=== PATIENT | male | born 1970 | race Caucasian/White ===

== ENCOUNTER 2022-03-13 14:00 | Outpatient (RCR) | payer OTHER, SELFPAY ==
--- NOTE | 2022-03-13 14:36 | PT.OPDN ---
PT [place] [facility] Daily Note PT [facility] Daily Note Start: 11/28/21 15:18 Freq: Status: Active Protocol: Document 03/13/22 13:52 CJT (Rec: 03/13/22 14:36 CJT [id number]) E-signed By Chacho Amor, PT PT OP Daily Progress Note Visit Information Note Type Recert/Progress Note,No Charge Insurance Authorized Visits tbd Physician Authorized Visits eval and treat Insurance Information Recert Due Date 03/19/22 Insurance Name [facility] Medical Diagnosis M67.912 - Unspecified disorder of synovium and tendon, left shoulder, M75.02 - Adhesive capsulitis of left shoulder Treating Diagnosis M25.512 - L shoulder pain M25.612 - L shoulder stiffness Referring Justus Meneses MD Subjective Subjective Pt returns following two week absence. Has returned to the gym and working on free weights. This is going well but pt is still lacking ability to press weights overhead. All-in-all his shoulder feels about the same, progress has reached a plateau. Home Exercise Home Exercise Comments [id number] Objective Other/Pertinent Objective L shoulder AROM: 155/90/75/15 True GHJ abduction measured as 60 degrees Strength measures 5/5 MMT in all directions - pain noted with resisted IR Wahkon's: positive - L bicep lacks visible contraction [place]'s: positive Crossover: positive Mar/Eugene: positive Patient Instructed in Risks/Benefits Yes Assessment/Impression Assessment/Impression Pts progress has reached a plateau. Still having trouble finding comfortable position for L shoulder while sleeping, unable to press free weights overhead and elevation ROM continues to be limited, especially with abduction. Strict GHJ abduction measured as 60 degrees today with pain noted in lateral delt region. Tests for impingement, labrum involvement continue to be negative and pts L bicep lacks visible contraction with Wahkon's test. I informed Jb that I spoke with Dr. Hanson earlier today who encouraged me to refer Jb back to his office. Jb agrees with this plan. We will cancel his remaining visits for now and wait for results/ directions following his consultation with orthopedics. Plan of Care Physical Therapy Goals STG - To be completed in 2-3 weeks: 1. Pt will demonstrate improved shoulder flexion and abduction by 15+ degrees so that they may reach for cans of soup on top shelf in pantry . -Abduction MET, Flexion MET 2. Pt will report reduction in shoulder pain by factor of 2 so that they may sleep without waking due to pain while shifting position in the night . MET LTG - To be completed in 6-8 weeks: 1. Pt to be I with HEP so that they may I manage progression of symptoms. 2. Pt will report ability to lay on R/L shoulder in bed without increase in pain so that they may sleep in preferred position to achieve better night's sleep. 3. Pt will demo full and pain free shoulder ROM and strength B so that they may return to recreational exercise at gym. 4. Pt will perform 10 shoulder abductions with 10# dumbbell on L without increase in shoulder pain so that he may continue to perform this exercise at the gym without reaggravating his shoulder symptoms. Daily Plan of Care Change POC; See Comments Daily Plan of Care Comments Hold chart.
== END 2022-05-15 11:06 | disposition home or self-care (01) ==
PROVIDERS: Visit Provider Orthopaedic Surgery Sports Medicine
DX: M67.912 Unspecified disorder of synovium and tendon, left shoulder (principal); Z51.89 Encounter for other specified aftercare
CPT/HCPCS: 97035; 97110; 97140; 97161

== ENCOUNTER 2023-12-03 07:03 | Outpatient (CLI) | payer OTHER, SELFPAY ==
--- OUTSIDE RECORDS SUMMARY | 2023-12-03 07:08 | XMS_ITS | Clinical Summary ---
Author Organization [facility] Address [place], [place] [address] Care Team Providers Care Application Design Engineer Name Role Phone tAif Mcdonald MD Primary Care Provider Allergies No known active allergies Medications Medication Sig Dispensed Refills Start Date End Date Status tadalafiL (CIALIS) 5 mg tabletIndications:Ere ctile dysfunction, unspecified erectile dysfunction type,BPH with urinary obstruction Take 1 tab daily. Take additional 1-3 tabs as needed before sexual activity 120 Tablet 3 08/31/2023 Active atorvastatin (LIPITOR) 20 mg tabletIndications:Mix ed hyperlipidemia Take 1 Tablet (20 mg) by mouth at bedtime. 90 Tablet 3 08/31/2023 Active Active Problems Problem Noted Date Diagnosed Date Basal cell carcinoma (BCC) of skin of face 08/29 Overview: Face- 2022 Elevated lipoprotein(a) 06/24/2021 Hemorrhoids, internal 06/18/2021 Erectile dysfunction 06/18/2021 Tubular adenoma of colon 06/18/2021 Overview: Colonoscopy May 2020-repeat after 3 years Mixed hyperlipidemia 10/19/2017 Resolved Problems Problem Noted Date Diagnosed Date Resolved Date Rectal bleeding 10/19/2017 08/31/2023 Encounters Date Type Department Care Team Description 11/04/2023 Refill [facility] [address] [place], [place] [id number] Atif Mcdonald MD Refill Request (Tadalafil) from Last 3 Months Immunizations Name Administration Dates Next Due COVID-19 vaccine (Moderna 100mcg/0.5mL) PF, MDV 10/02/2020,09/04/2020 COVID-19 vaccine (Moderna Camilo marysol 50mcg/0.25mL) PF, MDV 06/07/2021 Td (Age >=7 Years) 06/02/2008 Tdap 03/24/2017,06/02/2008 Family History Medical History Relation Name Comments Good Health Father Diabetes Maternal Grandfather Coronary artery disease Mother Good Health Mother Relation Name Status Comments Father Maternal Grandfather Mother Social History Tobacco Use Types Packs/Day Years Used Date Smoking Tobacco: Never Smokeless Tobacco: Never Alcohol Use Standard Drinks/Week Comments Yes 1 (1 standard drink = 0.6 oz pur e alcohol) c ouple beers a week. PHQ-2 Answer Date Recorded PHQ-2 TOTAL SCORE 0 08/31/2023 Social Connections Answer Date Recorded Frequency of Communication with Friends and Fami ly Not on file 08/31/2023 Financial Resource Strain Answer Date R ecorded Difficulty of Paying Living Expenses 3 08/29/2022 Difficulty of Paying Living Expenses Not on file 08/29/2022 Food Insecurity Answer Date Recorded Worried About Running Out of Food in the Last Ye ar 1 08/29/2022 Transportation Needs Answer Date Record ed Lack of Transportation (Medical) 1 08/29/2022 Housing Stability Answer Date Recorded Unable to Pay for Housing in the Last Year 1 08/29/2022 Sex and Gender Information Value Date Recorded Sex Assigned at Not on file Gender Identity Not on file Sexual Orientation Not on file Obstetrics History Last Filed Vital Signs Vital Sign Reading Time Taken Comments Blood Pressure 102/58 08/31/2023 8:16 AM CDT Pulse 72 08/31/2023 8:16 AM CDT Temperature 35.9 ??C (96.7 ??F) 06/01/2019 10:[address] Respiratory Rate 16 06/08/2008 12:35 PM PSYCHOLOGIST EXPERIMENTAL Oxygen Saturation 98% 06/01/2019 10:28 AM PSYCHOLOGIST EXPERIMENTAL Inhaled Oxygen Concentration - - Weight 90.7 kg (200 lb) 08/31/2023 8:16 AM CDT Height 186.1 cm (6' 1.25) 08/31/2023 8:16 AM CD T Body Mass Index 26.21 08/31/2023 8:16 AM CDT Plan of Treatment Health Maintenance Due Date Last Done Comments HIV for age 15-65 1984 Hepatitis C screening for age 18-79 09/12/1987 Zoster (shingles) series for age 50+ (1 of 2) 09/12/2019 COVID-19 vaccine series (4 - 2022- season) 2023 06/07/2021, 10/02/2020, 09/04/2020 Influenza for age 50-64 01/17/2024 BMI (ht and wt on same day) for age 18+ 08/30/2024 08/31/2023, 08/29/2022, 06/19/2021, Additional history exists Depression screening for age 12+ 08/30/2024 08/31/2023, 06/19/2021, 06/19/2021, Additional history exists Tetanus booster 03/24/2027 03/24/2017, 05/18, 06/02/2008, Additional history exists Colonoscopy through age 75 06/10/2028 06/10/2023, Lipids for age 45-75 08/30/2028 08/31/2023, 08/29/2022, 08/28/2021, Additional history exists Tdap Completed 03/24/2017, 06/02/2008 Pneumococcal series for age 6-64 Aged Out No longer eligible based on patient's age to complete this topic Procedures Procedure Name Priority Date/Time Associated Diagnosis Comments LIPID PANEL W REFLEX MEASURED LDL Routine 08/31/2023 8:59 AM CDT Elevated lipoprotein(a) Mixed hyperlipidemia SCAN-COLONOSCOPY 06/10/2023 9:00 AM PSYCHOLOGIST EXPERIMENTAL from Last 3 Months or Most Recently Relevant to Health Maintenance Results * (ABNORMAL) LIPID PANEL W REFLEX MEASURED LDL (08/31/2023 8:59 AM CDT) CHOLESTEROL,TOTAL 203(H) 100 - 199 mg/dL 08/31/2023 3:11 PM CDT [facility] Comment: Cholesterol, Total Reference Ranges Desirable <200 mg/dL Borderline 200-239 mg/dL High >=240 mg/dL TRIGLYCERIDES 90 <150 mg/dL 08/31/2023 3:11 PM CDT [facility] HDL CHOLESTEROL 64 >40 mg/dL 3:11 PM CDT [facility] NON-HDL CHOLESTEROL 139 <145 mg/dl 08/31/2023 3:11 PM CDT [facility] CHOL/HDL RATIO 3.17 <4.50 08/31/2023 3:11 PM CDT [facility] LDL CHOLESTEROL 121 <=130 mg/dL 08/31/2023 3:11 PM CDT [facility] VLDL CHOLESTEROL 18 <=30 mg/dL 08/31/2023 3:11 PM CDT [facility] PROVIDER ORDERED STATUS RANDOM 08/31/2023 3:11 PM CDT [facility] Blood BLOOD SPECIMEN / Unknown Venipuncture / Unknown 08/31/2023 8:59 AM CDT 08/31/2023 9:01 AM CDT Atif Mcdonald MD CHEMISTRY [facility] [address] [place] [address], * SCAN-COLONOSCOPY (06/10/2023 9:00 AM PSYCHOLOGIST EXPERIMENTAL) Narrative Procedure Note Fadi Tenorio MD - 06/10/2023 8:06 AM CST [facility] [address], [address], [place] [address] Patient Name: Jona Bravo Gender: Male Exam Date: 06/10/2023 Visit Number: [id number] Age: 52 Years Date of : 1970 Attending MD: Fadi Rubin MD Medical Record#: [id number] Procedure: Colonoscopy Indications: Previous adenomatous polyp(s) Referring MD: Referral Self Primary MD: Atif Mcdonald MD Medications: Admitting Medications: 0.9% Normal Saline at TKO Intra Procedure Medications: Patient received monitored anesthesia care. Complications: No immediate complications Procedure: An examination of the heart and lungs was performed and found to be withinacceptable limits. . The patient was therefore deemed a reasonablecandidate for endoscopy and sedation. The risks and benefits of the procedure were explained to the patient.After obtaining informed consent, the patient received monitoredanesthesia care and I passed the scope without difficulty via the rectum to the ileum. The appendiceal orificeand ic valve were identified. The scope was retroflexed during theexamination The quality of the prep was excellent (Fady/Gat Split). This was a complete examination throughout the entire colon. Findings: Polyp location: transverse colon. Quantity: 1. Size: 2 mm. Polyp shape:sessile. Maneuver: polypectomy was performed with a cold snare. Removal: complete. Retrieval: complete. Bleeding: none. Polyp location: descending colon. Quantity: 1. Size: 7 mm. Polyp shape:sessile. Maneuver: polypectomy was performed with a cold snare . Removal: complete. Retrieval: complete. Bleeding: none. Hemorrhoids. External hemorrhoids without bleeding. Remainder of the exam is normal. Impression: Colorectal polyps Hemorrhoids, external History of adenomatous polyp of colon Preliminary Plan: The patient and their physician will receive a copy of the pathologyreport as well as pathology-based recommendations for future screening orsurveillance. Pathology Results: A: COLON, TRANSVERSE, POLYP: 1. Normal colonic mucosa; a lymphoid aggregate is present(clinically, 1 polyp) 2. Negative for serrated change, dysplasia, and malignancy B: COLON, DESCENDING, POLYP: 1. Tubular adenoma 2. Negative for high grade dysplasia 3. Per the colonoscopy report: a. Polyp size: 7 mm b. Resection: Complete c. Retrieval: Complete MICROSCOPIC A: Performed B: Performed Electronically signed by: Blayne Pedroza MD Interpreted at [facility], [address] [place], [place] [id number] Orders Instruction(s)/Education: Instruction/Education Timeframe Assessment Colon Cancer Prevention K64.4 Colon Polyps K64.4 Hemorrhoids K64.4 Final Plan: Repeat colonoscopy in 5 years. We will attempt to contact you at appropriate intervals via U.S. mail. Wemay not be able to find you or contact you at that time, therefore youshould know that the responsibility for following our recommendation restswith you. If you don't hear from us at the time your procedure is due,please contact our office to schedule an appointment. If your contactinformation should change, please contact our office so that we can updateyour record. _Electronically signed by: Fadi Rubin MD 06/10/2023 cc: Atif Mcdonald MD Fadi Tenorio MD OTHER from Last 3 Months or Most Recently Relevant to Health Maintenance Advance Directives * Full Code (Latest Code Status on File) Date Activated Date Inactivated Comments 06/08/2008 8:00 AM 06/08/2008 1:08 PM * Full Code Date Activated Date Inactivated Comments 06/08/2008 7:54 AM 06/08/2008 8:00 AM Care Teams Application Design Engineer Relationship Specialty Start [place] [address] [place] [address] PCP - General Family Practice 10/06/17
--- OUTSIDE RECORDS SUMMARY | 2023-12-03 07:08 | XMS_ITS | Data Portability ---
Author Organization [facility] Address [address] [place] [address] Care Team Providers Care Bookseamer Blindstitch Name Role Phone CLARISA SHELLEY Primary Care Provider [phone] Assessment No assessment recorded. Plan of Treatment Reminders Order Date Submit Date Provider Last Modified By Organization Details Last Modified Time Details Appointments None recorded. Lab None recorded. Referral None recorded. Procedures None recorded. Surgeries vasectomy (SURG) 2023 024 henri Not available 09:07:33 Imaging None recorded. Medication Orders cephalexin 500 mg capsule 2023 024 [id number], [address] [place], [address], 4 16:14:38 Patient TargetsNo targets recorded. Patient Instructions Encounter Date Encounter Id Patient Instructions Last Modified By Organization Details Last Modified Time 08/19/2023 [id number] Bilateral vasa palpable on exam. A pre-procedure antibiotic was prescribed. Patient was instructed to take antibiotics 30 minutes before the procedure. After a thorough discussion of the preparation, procedure details, risks, possible complications, post-operative care and instructions the patient wishes to proceed with vasectomy. He was given an opportunity to ask questions related to the above information. He understands that a vasectomy is intended to be permanent. The patient understands that while vasectomy reversal is possible, after a vasectomy reversal is not assured. He also understands that a vasectomy reversal is almost always associated with a large, [id number] cost. He does understand that reestablishment of sperm flow through the vas deferens is extremely rare but possible and may result in an unexpected at any time after his vasectomy. Furthermore, he understands that control must be used after vasectomy is performed until He is cleared for unprotected intercourse. He has read the Vasectomy Patient Info Book provided to him and was given an opportunity to answer questions related to the procedure and post-op care. With previous h/o vasectomy, will likely need procedure done in OR. Pt verbalizes understanding and agrees with plan. will call pt after discussion with Dr. Mary ho Not available 08/19/2023 16:16:06 Reason for Referral None Reported. Results Created Date Observation Date Name Description Value Unit Range Abnormal Flag LastModifiedBy Organization Detail LastModifiedTime Result Notes None recorded. Procedures Surgical History Date Name Laterality Status Provider Name and Address Organization Details Recorded Time 06/01/19 24 Diagnostic colonoscopy completed Not Available Health Note 08/18/2023 16:15:58 Removal of sperm duct(s) completed Not Available Health Note 08/18/2023 16:15:58 Imaging Results None recorded. Procedure Notes None recorded. Medical Equipment None Reported. Allergies No known drug allergies Medications Name Sig Start Date Stop Date Status Note LastModified by Organization Details LastModified Time atorvastatin 20 mg tablet 20mg 1/day active Not Available Not Available No t Available amoxicillin 875 mg tablet TAKE 1 TABLET BY MOUTH TWICE A DAY UNTIL GONE active Not Available Not Available No t Available cephalexin 500 mg capsule TAKE 1 CAPSULE BY MOUTH FOR ONE DOSE. active Not Available Not Available No t Available tadalafil 5 mg tablet TAKE 1 TABLET BY MOUTH ONCE DAILY. TAKE 30 MINUTES BEFORE SEXUAL ACTIVITY . active Not Available Not Available No t Available Cialis 20 mg tablet 20mg 3x/week active Not Available Not Available No t Available chlorhexidine gluconate 0.12 % mouthwash RINSE WITH 0.5 OZ 2 TO 3 TIMES DAILY, FOR 30 SECONDS. DO NOT SWALLOW active Not Available Not Available No t Available Vitals Date Recorded Body height Body mass index (BMI) Body weight Provider Name and Address Organization Details Last Updated DateTime 08/19/2023 185.42 cm 26.1 kg/m2 65201.3960 530441 g Not Available Health Note 08/19/2023 15:50:15 Social History Question Answer Notes LastModified by Organizat ion Details LastModified Time Tobacco Smoking Status Never Smoker Not Available Health Note 08/18/2023 16:15:58 What Is Your Level Of Alcohol Consumption? Occasional [email or web address] Information not available 08/18/2023 What Is Your Level Of Caffeine Consumption? Moderate [email or web address] Information not available 08/18/2023 How Much Tobacco Do You Chew? None [email or web address] Information not available 08/18/2023 Do You Or Have You Ever Used E-cigarettes Or Vape? Never Used Electronic Cigarettes [email or web address] Information not available 08/18/2023 What Was The Date Of Your Most Recent Tobacco Screening? 08/19/2023 [email or web address] Information not available 08/18/2023 What Is Your Relationship Status? Single [email or web address] Information not available 08/18/2023 Are You Sexually Active? Yes [email or web address] Information not available 08/18/2023 Do You Or Have You Ever Used Smokeless Tobacco? Never Used Smokeless Tobacco [email or web address] Information not available 08/18/2023 Do You Use Any Illicit Or Recreational Drugs? No [email or web address] Information not available 08/18/2023 How Many Days In The Past Year Have You Consumed 5 Or More Drinks? 20 [email or web address] Information no t available 08/18/2023 Sex: Unknown Functional Status None recorded. Mental Status None recorded. Family History Relationship Description Onset Age of this Age Resolved Age Notes Maternal Grandfather Family history of diabetes mellitus Medical History Condition Response High Blood Pressure N Kidney Stones N Lung Disease N Depression N GERD/Acid Reflux Y Sexually Transmitted Infection N Diabetes N Bleeding Disorder N Cancer N High Cholesterol Y Heart Disease N Immunizations Vaccine Type Date Status Provider Name and Address Organization Details Recorded Time COVID-19, mRNA, LNP-S, PF, 100 mcg/0.5mL dose or 50 mcg/0.25mL dose 06/07/[address] [facility] 08/19/2023 15:57:38 COVID-19, mRNA, LNP-S, PF, 100 mcg/0.5mL dose or 50 mcg/0.25mL dose 09/04/[address] [facility] 08/19/2023 15:57:38 COVID-19, mRNA, LNP-S, PF, 100 mcg/0.5mL dose or 50 mcg/0.25mL dose 10/02/[address] [facility] 08/19/2023 15:57:38 Tdap 03/24/[address] [facility] 08/19/2023 15:57:38 Td (adult), 2 Lf tetanus toxoid, preservative free, adsorbed 06/02/[address] [facility] 08/19/2023 15:57:38 Past Encounters Encounter ID Performer Location Encounter Start Date Encounter Closed Date Diagnosis/Indication Diagnosis SNOMED-CT Code [id number] Ariana Banks PA-C [facility] [address] [place] [address] 08/19/2023 15:48:08 08/19/2023 16:37:42 Contraception care management [id number] Health Concerns Section Related Observation LastModified by Organization Detai ls LastModified Time None Recorded Concern Status LastModified by Organization Details LastModified Time None Recorded Advance Directives Directive None Recorded Payers Encounter Date Sequence Insurance Name Policy Number Policy Huang Covered Member ID Huang Member ID Guarantor Name 08/19/2023 1 [facility] [id number] Jona Bravo [id number] Jona Bravo Notes Date Note Type Note Provider Name and Address Organization Details Recorded Time 08/19/2023 text/html HPI Notes: Hari fu is a 52-year-old male who presents today for vasectomy consult. Patient is , 3 children. Patient is on the same page with . Vasectomy in 2017, done [facility] in [place], no confirmation SA test done after. Had a baby within in year SA on 08/17/23 confirming sperm Ariana Banks PA-C [address], [place], [address], [facility] 08/19/2023 21:29:31
--- NOTE | 2023-12-03 07:15 | MR_ITS ---
[address] [address] Phone:?[phone] Fax:?[phone] Referring Physician Information: Justus Hanson M.D. [id number] [id number] Phone:?[phone] Fax:?[phone] Patient:Omayra Bravo D.O.B:?1970 Sex:?Male Phone:?[phone] [facility] MRN:?[id number] Exam Date:?12/03/2023 EXAM: MRI of the RIGHT KNEE, without contrast CLINICAL HISTORY: Ongoing right knee pain. Evaluate for medial meniscal tear. COMPARISONS: Plain radiographs 10/08/2023. TECHNICAL: MR sequences of the right knee: sagittals: PD, PDFS coronals: PD, T2FS axials: PD, PDFS CONTRAST: None SEDATION: None FINDINGS: Bones: No fracture, bone marrow contusion, or other suspicious bone marrow signal abnormality. Patellofemoral joint: Cartilage: There is extensive grade II and III chondromalacia over all portions of patella and extensive grade II chondromalacia over all portions of the femoral trochlea. Retinacula: The medial and lateral retinacula are intact. Fat pads: The infrapatellar, quadriceps, and prefemoral fat pads are unremarkable. Knee joint: Effusion: Trace right knee joint effusion. Popliteal cyst: None. Intra-articular bodies: None. Posteromedial corner: The semimembranosus and pes anserine tendons are intact. Medial compartment: Medial meniscus: There is a 4.0 cm in length predominantly horizontal tear from the body through posterior horn of the medial meniscus. There is 3 mm of medial meniscal extrusion with a 3 mm in length flap of torn meniscal tissue from the body extruded into the medial gutter. Cartilage: Intact. Lateral compartment: Lateral meniscus: Intact. Cartilage: Approximately 1.0 x 1.0 cm area of grade I chondromalacia over the central portion of the lateral tibial plateau. Ligaments: Anterior cruciate ligament: Intact. Posterior cruciate ligament: Intact. Medial collateral ligament: Intact. Posterior oblique ligament: Intact. Fibular collateral ligament: Intact. Posterolateral corner: The distal biceps femoris tendon, iliotibial band, popliteus tendon, popliteus muscle, popliteofibular ligament, and arcuate ligament are intact. Extensor mechanism: Patellar tendon: Intact. Quadriceps tendon: Intact. IMPRESSION: 1. 4.0 cm in length predominantly horizontal tear from the body through posterior horn of the medial meniscus. 3 mm of medial meniscal extrusion with a 3 mm in length flap of torn meniscal tissue from the body extruded into the medial gutter. 2. 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 3. Approximately 1.0 x 1.0 cm area of grade I chondromalacia over the central portion of the lateral tibial plateau. 4. Trace right knee joint effusion. 5. No ligamentous injury or lateral meniscal tear of the right knee. RCB Electronically signed on 12/03/2023 9:25:00 AM by Lamin Wallis M.D.
== END 2023-12-03 07:04 | disposition home or self-care (01) ==
LOC: MRI 07:05
PROVIDERS: Visit Provider Orthopaedic Surgery Sports Medicine
DX: M25.561 Pain in right knee (principal); S83.242A Other tear of medial meniscus, current injury, left knee, initial encounter; M22.42 Chondromalacia patellae, left knee; M25.462 Effusion, left knee
CPT/HCPCS: 73721